=== PATIENT | male | born 1990 | race Two or more races ===

== ENCOUNTER 2017-05-01 00:37 | Emergency (ER) | payer MEDICAID ==
[~2017-05-01] VITALS: Ht 162.6 cm; Wt 68.0 kg
[2017-05-01 01:33] VITALS: BP 146/90
[2017-05-01] MEDS ORDERED: IBUPROFEN600 MG ORAL (02:18)
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
[2017-05-01 02:37] VITALS: BP 146/90
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
== END 2017-05-01 02:37 | disposition home or self-care (01) ==
LOC: EDBD 00:37 → EMR 01:06
DX: S09.8XXA Other specified injuries of head, initial encounter (principal); S60.511A Abrasion of right hand, initial encounter; V43.52XA Car driver injured in collision with other type car in traffic accident, initial encounter; Y92.410 Unspecified street and highway as the place of occurrence of the external cause; R42 Dizziness and giddiness
CPT/HCPCS: 70450; 99284